=== PATIENT | female | born 1965 | race Caucasian/White ===

== ENCOUNTER 2020-12-12 14:46 | Emergency (ER) | payer BC ==
[~2020-12-12] VITALS: Ht 170.2 cm; Wt 99.8 kg
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
--- NOTE | 2020-12-12 15:12 | NUR ---
at bedside for assessment
[2020-12-12] MEDS ORDERED: HYDROCODONE/APAP 10-325 MG TABLET PO ONE (15:15)
[2020-12-12] MEDS ORDERED: ONDANSETRON ODT 4 MG TAB.RAPDIS SL ONE (15:15)
--- NOTE | 2020-12-12 15:41 | NUR ---
Patient taken to radiology for for CT
[2020-12-12] MEDS ORDERED: ONDANSETRON ODT 4 MG TAB.RAPDIS ONE (15:43)
[2020-12-12] MEDS ORDERED: HYDROCODONE/APAP 10-325 MG TABLET ONE (15:43)
[2020-12-12] MEDS ORDERED: HYDR-4209 PO (16:21)
[2020-12-12] MEDS ORDERED: IBUP-1957 PO (16:21)
[2020-12-12] MEDS ORDERED: IBUPROFEN 800 MG TABLET PO ONE (16:30)
[2020-12-12] MEDS ORDERED: DEXAMETHASONE SOD PHOSPHATE 4 MG INJ IM ONE (16:30)
[2020-12-12] MEDS ORDERED: DEXAMETHASONE SOD PHOSPHATE 4 MG INJ ONE (16:50)
[2020-12-12] MEDS ORDERED: IBUPROFEN 800 MG TABLET ONE (16:50)
[2020-12-12] MEDS ORDERED: DEXAMETHASONE SOD PHOSPHATE 10 MG INJ ONE (16:51)
--- NOTE | 2020-12-12 17:04 | NUR ---
Patient discharged to home in stable condition. No signs of acute distress. Written and verbal after care instructions given. Patient verbalizes understanding of instructions. Stressed follow up or return to ER for worsening s/s.
[2020-12-12 17:08] VITALS: BP 128/90
== END 2020-12-12 16:50 | disposition home or self-care (01) ==
LOC: ER 14:46
DX: S16.1XXA Strain of muscle, fascia and tendon at neck level, initial encounter (principal); S29.012A Strain of muscle and tendon of back wall of thorax, initial encounter; V49.49XA Driver injured in collision with other motor vehicles in traffic accident, initial encounter; Y92.411 Interstate highway as the place of occurrence of the external cause
CPT/HCPCS: 70450; 72125; 72128; 96372; 99285; J1100 ×2; A4663; Q0162